=== PATIENT | male | born 1970 | race Caucasian/White ===

== ENCOUNTER 2024-01-01 13:01 | Outpatient (CLI) | payer OTHER, SELFPAY | END 2024-01-01 13:02 | disposition home or self-care (01) | PROVIDERS: PCP Family Medicine; Visit Provider Family Medicine | DX: E78.2 Mixed hyperlipidemia (principal); I10 Essential (primary) hypertension; Z11.59 Encounter for screening for other viral diseases; Z12.5 Encounter for screening for malignant neoplasm of prostate | CPT/HCPCS: 80053; 80061; 82043; 82570; 86803; G0103 ==

== ENCOUNTER 2024-05-21 09:31 | Outpatient (CLI) | payer OTHER, SELFPAY | END 2024-05-21 09:32 | disposition home or self-care (01) | LOC: AMB 06-19 03:19 | PROVIDERS: PCP Family Medicine; Visit Provider Student in an Organized Health Care Education/Training Program | DX: S29.9XXA Unspecified injury of thorax, initial encounter (principal); V43.52XA Car driver injured in collision with other type car in traffic accident, initial encounter; Y92.410 Unspecified street and highway as the place of occurrence of the external cause | CPT/HCPCS: A0425; A0429 ==

== ENCOUNTER 2024-05-21 10:04 | Emergency (ER) | payer OTHER, SELFPAY ==
[2024-05-21 09:59] VITALS: BP 136/81; PULSE 84; RESP 12; O2SAT 97; BMI 33.2
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
[2024-05-21 10:39] LABS: Basophils Absolute Auto 0.04 K/uL (0.00-0.30); Basophils Percent Auto 0.5 % (0.0-3.0); Eosinophils Absolute Auto 0.31 K/uL (0.00-0.50); Eosinophils Percent Auto 4.1 % (0.0-7.0); Hematocrit 45.6 % (37.0-53.0); Hemoglobin* 15.1 gm/dL (13.5-17.5); Immature Granulocytes Abs Auto 0.03 K/uL (0.00-0.30); Immature Granulocytes Pct Auto 0.4 %; Lymphocytes Absolute Auto 1.77 K/uL (0.90-2.90); Lymphocytes Percent Auto 23.5 % (20-44); Mean Corpuscular HGB Conc 33 gm/dL (32-36); Mean Corpuscular Hemoglobin 31 pg (26-34); Mean Corpuscular Volume 93 fL (80-100); Monocytes Percent Auto 9.6 % (0.0-11.0); Neutrophils Absolute Auto 4.65 K/uL (1.7-7.0); Neutrophils Percent Auto 61.9 % (42.0-72.0); Platelet Count* 247 K/uL (140-440); RDW Coefficient of Variation % 13.1 % (11.5-15.5); Red Blood Count 4.89 m/uL (4.30-5.90); White Blood Count* 7.52 K/uL (4.50-11.00)
[2024-05-21 10:43] LABS: Slide Review Reflex No
[2024-05-21 10:50] LABS: Chloride* 102 mmol/L (96-114); Sodium* 138 mmol/L (135-149)
[2024-05-21 10:53] LABS: Anion Gap 10 mEq/L (7-15); Carbon Dioxide* 26 mmol/L (20-32); Creatinine* 0.9 mg/dL (0.5-1.5); Est. Creatinine Clearance* 105.38; Estimated Glomerular Filt Rate 103 ml/min
[2024-05-21 10:54] LABS: Blood Urea Nitrogen* 17 mg/dL (7-30); Calcium* 9.6 mg/dL (8.4-10.6); Glucose* 126 mg/dL (60-115)
[2024-05-21 11:04] VITALS: BP 129/78; PULSE 80; RESP 16; O2SAT 96
--- NOTE | 2024-05-21 11:08 | ED.NURSE ---
C-Collar applied to patient upon return from CT. Patient tolerated well, CMS intact pre/post C- collar placement.
[2024-05-21] MEDS: KETOROLAC 15 MG/ML inj IVP (12:01)
[2024-05-21 12:04] VITALS: BP 142/76; PULSE 84; O2SAT 98
== END 2024-05-21 12:57 | disposition home or self-care (01) ==
PROVIDERS: Emergency Provider Student in an Organized Health Care Education/Training Program; PCP Family Medicine
DX: R07.81 Pleurodynia (principal)
CPT/HCPCS: 36415; 70450; 71260; 72125; 74177; 80048; 84484; 85025; 93005; 99284; 99285; J1885; Q9967

== ENCOUNTER 2025-03-18 14:33 | Outpatient (CLI) | payer OTHER, SELFPAY | END 2025-03-18 14:34 | disposition home or self-care (01) | LOC: NFLDREF 03-24 17:53 | PROVIDERS: PCP Family Medicine; Referring Provider Family Medicine; Visit Provider Family Medicine | DX: I10 Essential (primary) hypertension (principal); E78.5 Hyperlipidemia, unspecified; E66.9 Obesity, unspecified; K76.0 Fatty (change of) liver, not elsewhere classified; N28.1 Cyst of kidney, acquired; E78.2 Mixed hyperlipidemia; R79.89 Other specified abnormal findings of blood chemistry; Z12.5 Encounter for screening for malignant neoplasm of prostate | CPT/HCPCS: 80053; 80061; 82043; 82570; G0103 ==